=== PATIENT | female | born 2000 | race Two or more races ===

== ENCOUNTER 2020-03-16 18:03 | Outpatient (CLI) | payer MEDICAID ==
[~2020-03-16] VITALS: Ht 157.5 cm; Wt 70.4 kg
[2020-03-16 18:29] LABS: MICROSCOPIC INDICATED
[2020-03-16 18:45] VITALS: BP 120/68
[2020-03-16 21:44] LABS: AMPHETAMINE SCREEN, URINE Negative (Negative); BARBITURATE SCREEN, URINE Negative (Negative); BENZODIAZEPINE SCREEN, URINE Negative (Negative); CANNABINOID SCREEN, URINE Negative (Negative); COCAINE SCREEN, URINE Negative (Negative); METHADONE SCREEN, URINE Negative (Negative); OPIATE SCREEN, URINE Negative (Negative)
== END 2020-03-16 19:35 | disposition home or self-care (01) ==
LOC: LDOP 18:03
PROVIDERS: ATTEND Obstetrics & Gynecology
DX: O26.892 Other specified pregnancy related conditions, second trimester (principal); R25.2 Cramp and spasm; Z3A.27 27 weeks gestation of pregnancy
CPT/HCPCS: 80307; 81001; 87086; 99211; G0463

== ENCOUNTER 2020-06-02 00:30 | Outpatient (CLI) | payer MEDICAID ==
[~2020-06-02] VITALS: Ht 160 cm; Wt 68.2 kg
== END 2020-06-02 02:33 | disposition home or self-care (01) ==
LOC: LDOP 00:30
PROVIDERS: ATTEND Obstetrics & Gynecology
DX: Z34.93 Encounter for supervision of normal pregnancy, unspecified, third trimester (principal); Z3A.38 38 weeks gestation of pregnancy
CPT/HCPCS: 59025

== ENCOUNTER 2020-06-16 08:14 | Inpatient (IN) | payer MEDICAID ==
[~2020-06-16] VITALS: Ht 154.9 cm; Wt 74.0 kg
[2020-06-16] MEDS ORDERED: FENTANYL PF 100 MCG/2ML IVPush PRN (08:30)
[2020-06-16] MEDS ORDERED: TERBUTALINE 1 MG/ML, 1ML SQ PRN (08:30)
[2020-06-16] MEDS ORDERED: TERBUTALINE 1 MG/ML, 1ML IVPush PRN (08:30)
[2020-06-16] MEDS ORDERED: CALCIUM CARBONATE 500 MG TAB.CHEW PO PRN (08:30)
[2020-06-16] MEDS ORDERED: D5%-LACTATED RINGERS 1,000 ML IV SCH (08:30)
[2020-06-16] MEDS ORDERED: FENTANYL PF 100 MCG/2ML IV PRN (08:30)
[2020-06-16] MEDS ORDERED: ONDANSETRON 2MG/ML, 2ML IVPush PRN (08:30)
[2020-06-16] MEDS ORDERED: OXYTOCIN 30U/ 0.9% NaCL 500ML 500 ML IV ONE (08:30)
[2020-06-16 08:49] VITALS: BP 108/69
[2020-06-16 08:50] LABS: BASOPHILS % (AUTO) 0 % (0-1); EOSINOPHILS % (AUTO) 1 % (1-7); LYMPHOCYTES % (AUTO) 18 % (22-44); MEAN CORPUSCULAR HEMOGLOBIN 22.5 pg (27.0-34.8); MEAN PLATELET VOLUME 7.8 fL (7.4-10.4); MONOCYTES % (AUTO) 5 % (2-9); NEUTROPHILS % (AUTO) 75 % (42-75); PLATELET COUNT 201 x10^3/uL (130-400); RED CELL DISTRIBUTION WIDTH 17.4 % (9.6-15.2)
[2020-06-16 08:54] LABS: MD NO
[2020-06-16] MEDS: LACTATED RINGERS 1,000 ML IV SCH ×2 (09:07→13:43)
[2020-06-16 09:13] LABS: AMPHETAMINE SCREEN, URINE Negative (Negative); BARBITURATE SCREEN, URINE Negative (Negative); BENZODIAZEPINE SCREEN, URINE Negative (Negative); CANNABINOID SCREEN, URINE Negative (Negative); COCAINE SCREEN, URINE Negative (Negative); METHADONE SCREEN, URINE Negative (Negative); OPIATE SCREEN, URINE Negative (Negative)
[2020-06-16] MEDS ORDERED: NEWBORN KIT ONE (09:46)
[2020-06-16] MEDS ORDERED: MISOPROSTOL 25 MCG TABLET ONE ×2 (10:41→15:02)
[2020-06-16] MEDS: MISOPROSTOL 25 MCG TABLET VG PRN ×2 (10:50→23:00)
[2020-06-16] MEDS ORDERED: MISOPROSTOL 25 MCG TABLET VG ONE (23:30)
[2020-06-17] MEDS ORDERED: MISOPROSTOL 25 MCG TABLET ONE (02:51)
[2020-06-17 08:00] VITALS: BP 110/56
[2020-06-17] MEDS: LACTATED RINGERS 1,000 ML IVBOLUS PRN ×2 (09:27→10:30)
[2020-06-17] MEDS ORDERED: BUPIVACAINE 0.25% ONE (10:30)
[2020-06-17] MEDS ORDERED: FENTANYL/BUPIV./NS/PF 250 ML EPIDCONT ONE (10:30)
[2020-06-17] MEDS ORDERED: OXYTOCIN 30U/ 0.9% NaCL 500ML 500 ML IV PRN (12:00)
[2020-06-17] MEDS ORDERED: OXYTOCIN 30U/ 0.9% NaCL 500ML 500 ML ONE (12:02)
[2020-06-17] MEDS: LACTATED RINGERS 1,000 ML IV SCH ×2 (12:05→19:57)
[2020-06-18] MEDS ORDERED: ACETAMINOPHEN 325 MG TABLET PO PRN (03:00)
[2020-06-18] MEDS ORDERED: MISOPROSTOL 200 MCG TABLET PR PRN (03:00)
[2020-06-18] MEDS ORDERED: SIMETHICONE 80 MG CHEW TAB PO PRN (03:00)
[2020-06-18] MEDS ORDERED: OXYTOCIN 30U/ 0.9% NaCL 500ML 500 ML IV SCH (03:00)
[2020-06-18] MEDS ORDERED: OXYTOCIN 30U/ 0.9% NaCL 500ML 500 ML ONE (03:11)
[2020-06-18] MEDS ORDERED: IBUPROFEN 600 MG TABLET ONE (03:50)
[2020-06-18] MEDS: IBUPROFEN 600 MG TABLET PO PRN ×2 (03:52→21:45)
[2020-06-18 05:10] VITALS: BP 105/69
[2020-06-18 08:49] VITALS: BP 116/75
[2020-06-18] MEDS: DOCUSATE 100 MG CAPSULE PO PRN ×2 (09:46→21:45)
[2020-06-18] MEDS: PRENATAL VIT/IRON/FA 1 EACH TABLET PO SCH (09:46)
[2020-06-18 10:41] LABS: BASOPHILS % (AUTO) 0 % (0-1); EOSINOPHILS % (AUTO) 0 % (1-7); LYMPHOCYTES % (AUTO) 10 % (22-44); MEAN CORPUSCULAR HEMOGLOBIN 22.7 pg (27.0-34.8); MEAN CORPUSCULAR HGB CONC 32.2 g/dL (32.4-35.8); MONOCYTES % (AUTO) 5 % (2-9); NEUTROPHILS % (AUTO) 85 % (42-75); PLATELET COUNT 205 x10^3/uL (130-400); RED BLOOD COUNT 4.13 x10^6/uL (3.82-5.3); RED CELL DISTRIBUTION WIDTH 17.4 % (9.6-15.2)
[2020-06-18 10:46] LABS: MD NO
[2020-06-18 12:20] VITALS: BP 112/74
[2020-06-18 20:30] VITALS: BP 97/61
[2020-06-19 00:10] VITALS: BP 103/60
[2020-06-19 07:35] VITALS: BP 118/78
[2020-06-19] MEDS: DOCUSATE 100 MG CAPSULE PO PRN (08:59)
[2020-06-19] MEDS: PRENATAL VIT/IRON/FA 1 EACH TABLET PO SCH (08:59)
[2020-06-19] MEDS: IBUPROFEN 600 MG TABLET PO PRN (08:59)
[2020-06-19] MEDS ORDERED: IBUP-1222 PO (11:31)
== END 2020-06-19 12:19 | disposition home or self-care (01) | DRG 807 ==
LOC: LDIP 08:14 → 2NW 06-18 05:03
PROVIDERS: ADMIT Obstetrics & Gynecology; ATTEND Obstetrics & Gynecology
PROC: 4A1H7CZ Monitoring of Products of Conception, Cardiac Rate, Via Natural or Artificial Opening (ICD-10-PCS; 2020-06-17)
PROC: 10E0XZZ Delivery of Products of Conception, External Approach (ICD-10-PCS; principal; 2020-06-18)
PROC: 10907ZC Drainage of Amniotic Fluid, Therapeutic from Products of Conception, Via Natural or Artificial Opening (ICD-10-PCS; 2020-06-18)
DX: O48.0 Post-term pregnancy (principal); Z37.0 Single live birth; Z3A.40 40 weeks gestation of pregnancy; Z20.822 Contact with and (suspected) exposure to COVID-19
CPT/HCPCS: 36415; 76815; 80307; 85025; 86592; 86850; 86900; 87635; G0378; J2590; J3010; J7120

== ENCOUNTER 2020-12-15 11:32 | Emergency (ER) | payer MEDICAID ==
[~2020-12-15] VITALS: Ht 154.9 cm; Wt 66.4 kg
[~2020-12-15 11:32] MED LIST: IBUP-1222 PO
[2020-12-15 12:20] LABS: BASOPHILS % (AUTO) 1 % (0-1); EOSINOPHILS % (AUTO) 1 % (1-7); LYMPHOCYTES % (AUTO) 27 % (22-44); MEAN CORPUSCULAR HEMOGLOBIN 24.7 pg (27.0-34.8); MEAN CORPUSCULAR HGB CONC 32.7 g/dL (32.4-35.8); MEAN PLATELET VOLUME 8.5 fL (7.4-10.4); MONOCYTES % (AUTO) 5 % (2-9); NEUTROPHILS % (AUTO) 66 % (42-75); PLATELET COUNT 248 x10^3/uL (130-400); RED BLOOD COUNT 5.24 x10^6/uL (3.82-5.3); RED CELL DISTRIBUTION WIDTH 17.4 % (9.6-15.2)
[2020-12-15 12:31] LABS: ALANINE AMINOTRANSFERASE 118 U/L (12-78); ALBUMIN 3.8 g/dL (3.4-5.0); ANION GAP 8 mmol/L (5-15); CALCIUM 9.3 mg/dL (8.5-10.1); CHLORIDE 107 mmol/L (98-107); CREATININE 0.63 mg/dL (0.55-1.02)
[2020-12-15 12:36] LABS: ALKALINE PHOSPHATASE 148 U/L (45-117); BILIRUBIN,TOTAL 0.5 mg/dL (0.2-1.0); TOTAL PROTEIN 7.9 g/dL (6.4-8.2)
[2020-12-15 14:38] VITALS: BP 122/71
[2020-12-15 15:14] LABS: MICROSCOPIC INDICATED
--- NOTE | 2020-12-15 16:04 | NUR ---
HEALTH PROMOTER: PT SIGNED AMA FORM, WANTED TO LEAVE
== END 2020-12-15 16:05 | disposition left against medical advice (07) ==
LOC: ED 15:55
DX: R10.31 Right lower quadrant pain (principal); R11.0 Nausea; R30.0 Dysuria
CPT/HCPCS: 36415; 80053; 81001; 83690; 84703; 85025; 87086; 99283